=== PATIENT | female | born 1950 | race Caucasian/White ===

== ENCOUNTER 2022-05-10 13:17 | Outpatient (CLI) | payer MEDICARE, SELFPAY ==
[2022-05-10 22:31] LABS: Albumin* 4.5 g/dL (3.3-5.0); Chloride* 107 mmol/L (96-114); Sodium* 139 mmol/L (135-149)
[2022-05-10 22:34] LABS: Alanine Aminotransferase* 24 U/L (4-35); Alkaline Phosphatase* 105 U/L (40-150); Aspartate Amino Transferase* 30 U/L (12-35); Bilirubin Total* 0.5 mg/dL (0.1-1.5); Blood Urea Nitrogen* 13 mg/dL (7-30); Carbon Dioxide* 22 mmol/L (20-32); Cholesterol* 247 mg/dL (90-199); Creatinine* 0.7 mg/dL (0.5-1.5); Estimated Glomerular Filt Rate 93 ml/min; Glucose* 90 mg/dL (60-115); Total Protein* 7.7 g/dL (6.0-8.3); Triglycerides* 136 mg/dL (40-149)
[2022-05-10 22:35] LABS: Calcium* 9.6 mg/dL (8.4-10.6); HDL Cholesterol* 71 mg/dL (>=50); LDL Cholesterol Calculated 149 mg/dL (<100)
== END 2022-05-10 13:18 | disposition home or self-care (01) ==
LOC: LKVREF 13:17
PROVIDERS: PCP Family Medicine; Visit Provider Family Medicine
DX: E78.5 Hyperlipidemia, unspecified (principal); I10 Essential (primary) hypertension
CPT/HCPCS: 80053; 80061

== ENCOUNTER 2023-04-29 11:39 | Outpatient (CLI) | payer MEDICARE, SELFPAY | END 2023-04-29 11:40 | disposition home or self-care (01) | LOC: NFLDREF 05-02 05:30 | PROVIDERS: PCP Family Medicine; Referring Provider Family Medicine; Visit Provider Family Medicine | DX: Z00.00 Encounter for general adult medical examination without abnormal findings (principal); I10 Essential (primary) hypertension; E78.5 Hyperlipidemia, unspecified; F90.9 Attention-deficit hyperactivity disorder, unspecified type; F32.A Depression, unspecified; I63.9 Cerebral infarction, unspecified | CPT/HCPCS: 80053; 80061 ==

== ENCOUNTER 2024-04-27 11:44 | Outpatient (CLI) | payer MEDICARE, SELFPAY | END 2024-04-27 11:45 | disposition home or self-care (01) | LOC: LKVREF 11:50 | PROVIDERS: PCP Family Medicine; Visit Provider Family Medicine | DX: E78.5 Hyperlipidemia, unspecified (principal); I10 Essential (primary) hypertension | CPT/HCPCS: 80053; 80061 ==